=== PATIENT | female | born 1990 | race Caucasian/White ===

== ENCOUNTER 2018-05-26 16:14 | Emergency (ER) | payer OTHER ==
[~2018-05-26] VITALS: Ht 154.9 cm; Wt 91.0 kg
[2018-05-26 17:45] LABS: INFLUENZA A NONE DETECTED (NONE DETECT); INFLUENZA B NONE DETECTED (NONE DETECT)
[2018-05-26 18:06] VITALS: BP 106/70
[2018-05-26] MEDS ORDERED: AMOXICILLIN500 M2 PO (18:20)
== END 2018-05-26 18:30 | disposition home or self-care (01) ==
LOC: ED 16:14
PROVIDERS: Family Medicine
DX: J02.0 Streptococcal pharyngitis (principal); F17.210 Nicotine dependence, cigarettes, uncomplicated; R09.89 Other specified symptoms and signs involving the circulatory and respiratory systems; R05 Cough

== ENCOUNTER 2019-01-07 19:43 | Emergency (ER) | payer OTHER ==
[~2019-01-07] VITALS: Ht 154.9 cm; Wt 83.0 kg
[~2019-01-07 19:43] MED LIST: AMOXICILLIN500 M2 PO
[2019-01-07 20:55] LABS: HEMOGLOBIN 13.6 g/dl (12.0-16.0); IMMATURE GRANULOCYTES 0.4 % (0.0-5.0); MEAN CELL VOLUME 91.5 fL CALC (80.0-100.0); MEAN CORPUSCULAR HGB 31.1 pG CALC (26.0-32.0); NEUT# 8.18 thou/uL (2.00-7.15); RED BLOOD COUNT 4.37 mill/uL (4.20-5.60); RED CELL DISTRI WIDTH 12.9 % (11.5-15.5)
[2019-01-07] MEDS ORDERED: DOXYCYCL HYC100 MG PO (21:37)
[2019-01-07 21:42] VITALS: BP 125/74
== END 2019-01-07 21:42 | disposition home or self-care (01) ==
LOC: ED 19:43
PROVIDERS: Family Medicine
DX: J18.9 Pneumonia, unspecified organism (principal); R05 Cough; R09.81 Nasal congestion; F17.210 Nicotine dependence, cigarettes, uncomplicated

== ENCOUNTER 2019-03-10 15:59 | Emergency (ER) | payer OTHER ==
[~2019-03-10] VITALS: Ht 154.9 cm; Wt 85.0 kg
[~2019-03-10 15:59] MED LIST changes: +DOXYCYCL HYC100 MG PO
[2019-03-10] MEDS ORDERED: FLEXERIL PO (18:25)
[2019-03-10] MEDS ORDERED: TORADOL PO (18:25)
[2019-03-10 18:42] VITALS: BP 121/74
== END 2019-03-10 18:42 | disposition home or self-care (01) ==
LOC: ED 15:59
DX: L72.3 Sebaceous cyst (principal); R22.2 Localized swelling, mass and lump, trunk; S29.012A Strain of muscle and tendon of back wall of thorax, initial encounter; X58.XXXA Exposure to other specified factors, initial encounter

== ENCOUNTER 2019-09-18 07:18 | Emergency (ER) | payer OTHER ==
[~2019-09-18] VITALS: Ht 154.9 cm; Wt 79.5 kg
[~2019-09-18 07:18] MED LIST changes: +FLEXERIL PO; +TORADOL PO
[2019-09-18 07:50] LABS: HEMATOCRIT 43.2 % (37.0-47.0); HEMOGLOBIN 14.4 g/dl (12.0-16.0); IMMATURE GRANULOCYTES 0.4 % (0.0-5.0); MEAN CELL VOLUME 92.9 fL CALC (80.0-100.0); MEAN CORPUSCULAR HGB CONC 33.3 g/L CALC (32.0-36.0); NEUT# 5.3 thou/uL (2.00-7.15); RED BLOOD COUNT 4.65 mill/uL (4.20-5.60); RED CELL DISTRI WIDTH 13.5 % (11.5-15.5)
[2019-09-18 07:52] LABS: URINE BILIRUBIN - DIPSTICK NEGATIVE (NEGATIVE); URINE BLOOD DIPSTICK NEGATIVE (NEGATIVE); URINE COLOR YELLOW; URINE GLUCOSE - DIPSTICK NEGATIVE (NEGATIVE); URINE KETONE NEGATIVE (NEGATIVE); URINE LEUK ESTERASE NEGATIVE (NEGATIVE); URINE NITRITE - DIPSTICK NEGATIVE (Negative); URINE PROTEIN - DIPSTICK NEGATIVE (NEG-TRACE); URINE SPECIFIC GRAVITY >=1.030
[2019-09-18 08:08] LABS: ALKALINE PHOSPHATASE 87 u/l (38-126); ANION GAP 12 (6-22 (CALC)); BILIRUBIN, TOTAL 0.4 mg/dL (0.0-1.4); BUN 10 mg/dL (7-17); BUN/CREATININE RATIO 16 (12-20 (CALC)); CARBON DIOXIDE 30 mmol/l (22-30); CHLORIDE 103 mmol/l (95-108); CREATININE 0.7 mg/dL (0.5-1.0); GFR > 60 ML/MIN (>=60 (CALC)); GFR FOR AFR.AMER. > 60 ML/MIN (>=60 (CALC)); LIPASE 187 u/l (23-300); POTASSIUM 4.3 mmol/l (3.5-5.1); SGOT/AST 23 u/l (14-36); SODIUM 140 mmol/l (137-146); TOTAL PROTEIN 7.2 g/dL (6.3-8.2)
[2019-09-18 10:28] VITALS: BP 102/50
[2019-10-07] MEDS ORDERED: ALEVE220 M1 PO (08:38)
[2019-10-16] MEDS ORDERED: BACTRIM DS1 TAB PO (11:24)
[2019-10-16] MEDS ORDERED: KEFLEX500 M1 PO (11:24)
== END 2019-09-18 10:28 | disposition home or self-care (01) ==
LOC: ED 07:18
PROVIDERS: Family Medicine
DX: K80.20 Calculus of gallbladder without cholecystitis without obstruction (principal); F17.210 Nicotine dependence, cigarettes, uncomplicated

== ENCOUNTER 2019-10-11 | Day surgery (SDC) | payer OTHER ==
[~2019-10-11] MED LIST changes: +ALEVE220 M1 PO
[2019-10-11 11:24] LABS: BARBITURATES NEGATIVE (NEGATIVE); COCAINE NEGATIVE (NEGATIVE); METHADONE NEGATIVE (NEGATIVE); OXCYCODONE NEGATIVE (NEGATIVE); TETRAHYDROCANNABIONOL NEGATIVE (NEGATIVE); TRICYLIC ANTIDEPRESSANTS NEGATIVE (NEGATIVE)
[2019-10-11] MEDS ORDERED: PERCOCET 5/325M1 TAB PO (13:14)
== END 2019-10-11 13:50 | disposition home or self-care (01) ==
PROVIDERS: Surgery
DX: K80.10 Calculus of gallbladder with chronic cholecystitis without obstruction (principal)
CPT/HCPCS: J0131; J1100; J2710

== ENCOUNTER 2019-10-16 | Emergency (ER) | payer OTHER ==
[~2019-10-16] MED LIST changes: +PERCOCET 5/325M1 TAB PO
[2019-10-16] MEDS ORDERED: KEFLEX500 M1 PO ×2 (11:24)
[2019-10-16] MEDS ORDERED: BACTRIM DS1 TAB PO ×2 (11:24)
== END 2019-10-16 11:48 | disposition home or self-care (01) ==
DX: N61.0 Mastitis without abscess (principal); F17.210 Nicotine dependence, cigarettes, uncomplicated

== ENCOUNTER 2020-06-12 12:03 | Emergency (ER) | payer OTHER ==
[~2020-06-12] VITALS: Wt 84.1 kg
[~2020-06-12 12:03] MED LIST changes: +BACTRIM DS1 TAB PO; +KEFLEX500 M1 PO
[2020-06-12 12:42] LABS: HEMATOCRIT 47.8 % (37.0-47.0); HEMOGLOBIN 15.7 g/dl (12.0-16.0); IMMATURE GRANULOCYTES 0.5 % (0.0-5.0); MEAN CORPUSCULAR HGB 32.4 pG CALC (26.0-32.0); MEAN CORPUSCULAR HGB CONC 32.8 g/dL CAL (32.0-36.0); NEUT# 7.23 thou/uL (2.00-7.15); RED BLOOD COUNT 4.84 mill/uL (4.20-5.60); RED CELL DISTRI WIDTH 13.2 % (11.5-15.5)
[2020-06-12 12:50] LABS: MEAN CELL VOLUME 98.8 fL CALC (80.0-100.0)
[2020-06-12 12:51] LABS: ALBUMIN 4.4 g/dL (3.2-5.0); ALKALINE PHOSPHATASE 98 u/l (38-126); ANION GAP 9 (6-22 (CALC)); BILIRUBIN, TOTAL 0.6 mg/dL (0.0-1.4); BUN 10 mg/dL (7-17); BUN/CREATININE RATIO 12 (12-20 (CALC)); CARBON DIOXIDE 32 mmol/l (22-30); CHLORIDE 100 mmol/l (95-108); CREATININE 0.8 mg/dL (0.5-1.0); GFR > 60 ML/MIN (>=60 (CALC)); GFR FOR AFR.AMER. > 60 ML/MIN (>=60 (CALC)); LIPASE 140 u/l (23-300); SGOT/AST 24 u/l (14-36); SODIUM 137 mmol/l (137-146); TOTAL PROTEIN 7.4 g/dL (6.3-8.2)
[2020-06-12 13:14] LABS: URINE BILIRUBIN - DIPSTICK NEGATIVE (NEGATIVE); URINE BLOOD DIPSTICK NEGATIVE (NEGATIVE); URINE COLOR YELLOW; URINE GLUCOSE - DIPSTICK NEGATIVE (NEGATIVE); URINE KETONE NEGATIVE (NEGATIVE); URINE LEUK ESTERASE NEGATIVE (NEGATIVE); URINE NITRITE - DIPSTICK NEGATIVE (Negative); URINE PH 6.5 (4.5-8.0); URINE PROTEIN - DIPSTICK NEGATIVE (NEG-TRACE); URINE UROBILINOGEN - DIPSTICK 0.2 E.U./dL (0.2)
[2020-06-12] MEDS ORDERED: FLEXERIL PO (14:02)
[2020-06-12 14:24] VITALS: BP 113/70
== END 2020-06-12 14:22 | disposition home or self-care (01) ==
LOC: ED 12:03
DX: S29.012A Strain of muscle and tendon of back wall of thorax, initial encounter (principal); F17.210 Nicotine dependence, cigarettes, uncomplicated; X50.0XXA Overexertion from strenuous movement or load, initial encounter; Y92.89 Other specified places as the place of occurrence of the external cause; Y99.0 Civilian activity done for income or pay

== ENCOUNTER 2021-07-10 09:52 | Emergency (ER) | payer OTHER ==
[~2021-07-10] VITALS: Ht 2.5 cm; Wt 92.0 kg
[2021-07-10] MEDS ORDERED: ZPAK PO (11:36)
[2021-07-10 11:47] VITALS: BP 162/78
== END 2021-07-10 11:47 | disposition home or self-care (01) ==
LOC: ED 09:52
DX: J06.9 Acute upper respiratory infection, unspecified (principal); E66.9 Obesity, unspecified; F17.290 Nicotine dependence, other tobacco product, uncomplicated; Z20.822 Contact with and (suspected) exposure to COVID-19

== ENCOUNTER 2022-06-23 08:13 | Emergency (ER) | payer OTHER ==
[~2022-06-23] VITALS: Ht 154.9 cm; Wt 90.9 kg
[~2022-06-23 08:13] MED LIST changes: +ZPAK PO
[2022-06-23 08:20] VITALS: BP 134/96
[2022-06-23 08:30] VITALS: BP 132/84
[2022-06-23 09:50] LABS: URINE BILIRUBIN - DIPSTICK NEGATIVE (NEGATIVE); URINE BLOOD DIPSTICK NEGATIVE (NEGATIVE); URINE COLOR YELLOW; URINE GLUCOSE - DIPSTICK NEGATIVE (NEGATIVE); URINE KETONE NEGATIVE (NEGATIVE); URINE LEUK ESTERASE NEGATIVE (NEGATIVE); URINE PH 6.5 (4.5-8.0); URINE PROTEIN - DIPSTICK NEGATIVE (NEG-TRACE)
[2022-06-23 09:52] LABS: URINE NITRITE - DIPSTICK NEGATIVE (Negative)
[2022-06-23 10:20] VITALS: BP 132/84
[2022-06-23] MEDS ORDERED: FLEXERIL5 M1 PO ×2 (10:21)
== END 2022-06-23 10:30 | disposition home or self-care (01) ==
LOC: ED 08:13
PROVIDERS: Family Medicine
DX: M54.6 Pain in thoracic spine (principal); E66.9 Obesity, unspecified; F17.200 Nicotine dependence, unspecified, uncomplicated

== ENCOUNTER 2023-11-20 12:41 | Emergency (ER) | payer SELFPAY ==
[~2023-11-20] VITALS: Ht 154.9 cm; Wt 91.0 kg
[~2023-11-20 12:41] MED LIST changes: +FLEXERIL5 M1 PO
[2023-11-20 14:09] VITALS: BP 146/104
[2023-11-20] MEDS ORDERED: ONDANSETRON HCl 4 MG/2 ML SDV IV ONE (14:50)
[2023-11-20] MEDS ORDERED: SODIUM CHLORIDE 0.9% 1,000 ML IV ONE (14:50)
[2023-11-20] MEDS ORDERED: KETOROLAC TROMETHAMINE 30 MG/ML SDV IV ONE (14:50)
[2023-11-20] MEDS ORDERED: HYDROmorphone HCL 2 MG/AMP IV ONE (14:50)
[2023-11-20 15:09] LABS: BASO% 0.1 % (0-3); EOS% 1.3 % (0-8); HEMATOCRIT 44.2 % (37.0-47.0); HEMOGLOBIN 14.9 g/dl (12.0-16.0); IMMATURE GRANULOCYTES 0.1 % (0.0-5.0); LYMPH% 14.4 % (15-41); MEAN CELL VOLUME 100.7 fL CALC (80.0-100.0); MEAN CORPUSCULAR HGB 33.9 pG CALC (26.0-32.0); MEAN CORPUSCULAR HGB CONC 33.7 g/dL CAL (32.0-36.0); MONO% 6.6 % (2-13); NEUT# 10.4 thou/uL (2.00-7.15); NEUT% 77.5 % (42-76); RED BLOOD COUNT 4.39 mill/uL (4.20-5.60); RED CELL DISTRI WIDTH 12.8 % (11.5-15.5)
[2023-11-20 15:12] LABS: URINE BILIRUBIN - DIPSTICK Negative (NEGATIVE); URINE BLOOD DIPSTICK Negative (NEGATIVE); URINE GLUCOSE - DIPSTICK Negative (NEGATIVE); URINE KETONE Negative (NEGATIVE); URINE LEUK ESTERASE Negative (NEGATIVE); URINE NITRITE - DIPSTICK Negative (Negative); URINE PROTEIN - DIPSTICK Negative (NEG-TRACE); URINE UROBILINOGEN - DIPSTICK 0.2 E.U./dL (0.2)
[2023-11-20 15:14] LABS: URINE COLOR Yellow
[2023-11-20 15:30] LABS: ALBUMIN 4.5 g/dL (3.2-5.0); ALKALINE PHOSPHATASE 95 u/l (38-126); ANION GAP 11 (6-22 (CALC)); BILIRUBIN, TOTAL 1.2 mg/dL (0.02-1.3); BUN 8 mg/dL (7-17); BUN/CREATININE RATIO 12 (12-20 (CALC)); CARBON DIOXIDE 29 mmol/l (22-30); CHLORIDE 102 mmol/l (95-108); CREATININE 0.7 mg/dL (0.5-1.0); GFR FOR AFR.AMER. > 60 ML/MIN (>=60 (CALC)); GFR OTHER RACES > 60 ML/MIN (>=60 (CALC)); POTASSIUM 4.1 mmol/l (3.5-5.1); SGOT/AST 33 u/l (14-36); SODIUM 138 mmol/l (137-146); TOTAL PROTEIN 7.9 g/dL (6.3-8.2)
[2023-11-20 15:51] VITALS: BP 136/88
[2023-11-20 16:00] VITALS: BP 152/96
[2023-11-20 16:15] VITALS: BP 134/84
[2023-11-20] MEDS ORDERED: DOXYCYCLINE HYCLATE 100 MG/CAP PO ONE (16:50)
[2023-11-20] MEDS ORDERED: LORTAB 5/3255 MG PO (16:51)
[2023-11-20] MEDS ORDERED: VIBRAMYCIN100 M2 PO (16:51)
[2023-11-20] MEDS ORDERED: NAPROXEN500 MG PO (16:51)
[2023-11-20 17:00] VITALS: BP 134/84
== END 2023-11-20 17:12 | disposition home or self-care (01) | DRG 195 ==
LOC: ED 12:41
PROVIDERS: Nurse Practitioner
DX: J18.9 Pneumonia, unspecified organism (principal); F17.290 Nicotine dependence, other tobacco product, uncomplicated